=== PATIENT | male | born 1995 | race Two or more races ===

== ENCOUNTER 2018-10-05 12:53 | Emergency (ER) | payer MEDICAID ==
--- NOTE | 2018-10-05 13:15 | EDPHY ---
HPI/HX/ROS/PE/MDM Narrative: CLINICAL IMPRESSION: Medical clearance, shortness of breath ASSESSMENT/PLAN: Patient is a 23-year-old male with no significant medical history who is brought in for a medical clearance by PD. Patient is afebrile and not toxic- appearing, he is in no acute distress on arrival. His vital signs were within normal limits with a heart rate of 69 and oxygen saturation 96% on room air on my examination. Physical exam is unremarkable, his lungs were clear to auscultation without evidence of respiratory distress, hypoxia or airway compromise. His neurological exam was grossly normal with no focal deficit. There was no evidence of clinical intoxication, asthma exacerbation, withdrawal or other toxidrome. Patient was noted to have an isolated oxygen saturation of 93%, I do not suspect other etiologies such as pulmonary embolism, CHF, COPD, ACS or infectious process. The patient was observed for a period of time and on repeat examination he is well-appearing. Patient is considered stable for discharge to assisted. Return precautions were discussed-patient should immediately be evaluated for worsening shortness of breath, development of chest pain, profuse sweating, altered mentation or for any other concerning symptom. Case discussed with Dr. Kelly. DIFFERENTIAL DX: Shortness of breath including but not limited to pulmonary infectious process, COPD, asthma, pulmonary embolus and congestive heart failure. ED COURSE: 13:15: Case discussed with Dr. Kelly. CHIEF COMPLAINT: Med clearance, shortness of breath. HPI: Patient is a 23-year-old male with no significant medical history who presents to the emergency department brought in by police for a medical clearance. Patient reports he was at [facility] minding his own business when police were called for unknown reason. Patient reportedly found with a warrant and arrested, started to complain of a shortness of breath. Patient endorses drug abuse history, last used approximately 24 hr ago. Patient endorses a frequent and intermittent use of heroin, cocaine, fentanyl and what ever he can get his hands on. Patient is followed by a his telecommunications officer, had a visit this morning with no concerns. Patient denies any recent fever, chills, headache, nausea, vomiting or chest pain. He has had no abdominal pain. No underlying asthma or chronic lung problems. Patient denies any recent cough, runny nose or congestion. PMH: Denies Pertinent Past Surgical History: Denies Family History: Noncontributory Social History: Illicit drug use REVIEW OF SYSTEMS: All other systems negative Constitutional: No fever, no chills, appetite change. Eyes: No discharge, vision change ENT: No sore throat, congestion, ear pain. Cardiovascular: No chest pain, no palpitations. Respiratory: Shortness of breath. No cough. Gastrointestinal: No abdominal pain, no vomiting, diarrhea. Genitourinary: No hematuria, dysuria, flank pain, pelvic pain Musculoskeletal: No back pain, joint swelling, joint pain, myalgias. Skin: No rashes, color change. Neurological: No headache, dizziness, weakness. PHYSICAL EXAM: General Appearance: Alert, oriented, appropriate, cooperative, NAD, well hydrated, non-toxic appearing, VSS, no hypoxia. HENT: Normocephalic, atraumatic. Bilateral external ears are normal. Bilateral tympanic membranes are normal with pearly carlton reflex. Nares are clear, mucosa is pink. Oropharynx is clear, uvula is midline. There is no tonsillar enlargement or exudate. The dentition is normal. Eyes: PERRLA, no acute vision change, nystagmus, swelling, discharge, pain or photosensitivity. Conjunctiva pink, no pallor or injection Neck: Supple, nontender, no lymphadenopathy, no midline pain, FROM, no meningismus. Respiratory: There are no retractions, lungs are clear to auscultation. Cardiac: Regular rate and rhythm, no murmurs or gallops. Gastrointestinal: Abdomen is soft, nontender, bowel sounds normal, no masses/ hernia, no rigidity, guarding or focal peritoneal findings. Neurological: Alert and oriented x 3, CN 2-12 grossly intact, normal gait no ataxia, DTR's intact, normal sensation and strength Skin: Warm, dry, no rashes, no nodules on palpation. Musculoskeletal: Extremities are symmetrical, full range of motion, no tenderness, deformity, swelling, or erythema. Psychiatric: Patient is oriented X 3, there is no agitation. MEDICAL DECISION MAKING: Patient was seen independently. Secondary supervising physician at time of evaluation was Dr. Kelly. Diagnosis: Shortness of breath, med clearance. New, requires workup Summary: See Assessment and Plan for summary of ED visit Clinical lab tests: Not applicable. Independent visualization of images, tracing, or specimens: Not applicable. Decision to obtain medical records or history from someone other than the patient: Police Review / Summarize previous medical records: No Discussed patient with another provider: Yes, Dr. Kelly Patient Progress: Stable, discharged to assisted. General Initial Vital Signs: Initial Vital Signs Temperature (C) 37 C 10/05/18 13:02 Heart Rate 69 10/05/18 13:02 Respiratory Rate 16 10/05/18 13:02 Blood Pressure 121/57 H 10/05/18 13:02 O2 Sat (%) 93 10/05/18 13:02 O2 Delivery Mode Room Air Departure - Departure Disposition: Law Enforcement/Court/Group Home Clinical Impression: Shortness of breath Condition: Good Instructions: Shortness of Breath (ED) Additional Instructions: Patient is medically cleared for assisted. DISCHARGE INSTRUCTIONS FROM YOUR DOCTOR Thank you for visiting our emergency department today. Please keep in mind that discharge from the emergency department does not mean that there is nothing wrong - it simply means that we have not identified an emergency condition that requires further evaluation or treatment in the hospital. You should always plan to follow up with primary care for re-evaluation of your condition in the next 2-3 days. If you have been referred to a specialist, please call as soon as possible (today or tomorrow) to schedule your follow up appointment at the appropriate time. [facility] has walk-in appointments for the homeless at the following days/locations. No appointment is needed. Tuesday 8-10 am @ [facility] 11 AM-1 PM @ [facility] Tuesday 8-10:30 AM @ [facility] Tuesday 8-10 AM @ [facility] 2-4 PM @ [facility] Tuesday 8-10 AM @ [facility] People present with illnesses and injuries in different ways, and it is always possible that we have missed something. You may always return for re-evaluation if symptoms worsen or if they are not improving or if you develop new/different symptoms. Again, thank you for choosing our emergency department. We hope that you feel better. Referrals: NONE *PRIMARY CARE P,. [Primary Care Provider] - As per Instructions
[2018-10-05 13:20] VITALS: BP 121/57
== END 2018-10-05 13:29 ==
LOC: EEVIPCON 12:53
DX: R06.02 Shortness of breath (principal)